=== PATIENT | male | born 1985 | race Caucasian/White ===

== ENCOUNTER 2017-12-14 12:10 | Emergency (ER) | payer OTHER ==
[2017-12-14 14:39] VITALS: BP 110/58
[2017-12-14] MEDS ORDERED: Ibuprofen TAB* 600 MG PO ONE (15:00)
--- NOTE | 2017-12-14 16:28 | RAD ---
INDICATION: Pain at the right base of the thumb after a fall COMPARISON: None. TECHNIQUE: 4 views of the right hand and 4 views of the right wrist were obtained. FINDINGS: On the scaphoid view of the right wrist there is a lucent line along the proximal radial corner of the right trapezium that appears to extend to the cortices along the radial and proximal margins of the bone. Otherwise the remaining visualized bones are adequately corticated and appropriately aligned. IMPRESSION: Questionable nondisplaced fracture involving the radial proximal corner of the right trapezium. If the patient's symptoms persist, follow-up imaging is recommended.
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
--- NOTE | 2017-12-14 19:50 | RAD ---
INDICATION: Pain at the right base of the thumb after a fall COMPARISON: None. TECHNIQUE: 4 views of the right hand and 4 views of the right wrist were obtained. FINDINGS: On the scaphoid view of the right wrist there is a lucent line along the proximal radial corner of the right trapezium that appears to extend to the cortices along the radial and proximal margins of the bone. Otherwise the remaining visualized bones are adequately corticated and appropriately aligned. Joint spaces appear maintained. IMPRESSION: Questionable nondisplaced fracture involving the radial proximal corner of the right trapezium. If the patient's symptoms persist, follow-up imaging is recommended.
== END 2017-12-14 16:59 | disposition home or self-care (01) ==
LOC: UCEAST 12:10
DX: S69.91XA Unspecified injury of right wrist, hand and finger(s), initial encounter (principal); W22.8XXA Striking against or struck by other objects, initial encounter; Y93.9 Activity, unspecified; Y92.9 Unspecified place or not applicable; Z88.0 Allergy status to penicillin; F12.90 Cannabis use, unspecified, uncomplicated
CPT/HCPCS: 99211; A9270-GY; G0463

== ENCOUNTER 2019-10-26 09:22 | Inpatient (IN) | payer SELFPAY ==
--- OUTSIDE RECORDS SUMMARY | 2019-10-26 10:02 | XMS REPORT ---
:1985 Author Organization [facility] Care Team Providers Name Role Phone Mary Greco Primary Care Physician Unavailable Allergies, Adverse Reactions, Alerts Allergy Code CodeSystem Reaction Severity Criticality Status Start Substance Date Moderate Medications Medication Medication Medication Start Stop Route Dose Status Fill Code CodeSystem Date Date Instructions estradiol 931954 RxNorm oral 2 mg active for 30 7-09 tablet day(s) escitalopram 567504 RxNorm 2019- oral 10 mg completed for 30 oxalate 6-14 11-05 tablet day(s) escitalopram 711716 RxNorm 2018-11 oral 5 mg 1 active Take 1 tablet oxalate 1-05 tablet once a day once a for 30 day(s) day bupropion HCl 469689 RxNorm 2018-11 oral 300 mg active for 30 1-05 tablet day(s) extended release 24 hr spironolactone 166720 RxNorm oral 50 mg active for 30 7-09 tablet day(s) Problems Problem Name Code CodeSystem Alternate Alternate Start End Status Narrative Code CodeSystem Date Date Bipolar 09509982 SNOMED-CT 2018-11 Active affective 1-05 disorder, unspecified Depressive 74440130 SNOMED-CT Active episode, 3-22 unspecified Relevant diagnostic tests/laboratory data Narrative No Information Procedures Procedure Code CodeSystem Target Date of Status Service Device Device Device Name Site Procedure Delivery Code Name UID Location Psychotherap [id number] SNOMED-CT () 2019-06-14 complete Mental y, 45 04 d Health- minutes with [address], [id number] [id number] Psychotherap [id number] SNOMED-CT () 2019-06-28 complete Mental y, 45 04 d Health- minutes with [facility] patient [address], [id number] [id number] Psychotherap [id number] SNOMED-CT () 2019-07-26 complete Mental y, 45 04 d Health- minutes with [address], [id number] [id number] Psychotherap 325309 SNOMED-CT () 2019-08-02 complete Mental y, 45 04 d Health- minutes with [address], [id number] [id number] Psychotherap 154622 SNOMED-CT () 2019-08-09 complete Mental y, 45 04 d Health- minutes with [address], [id number] Psychotherap [id number] SNOMED-CT () 2019-08-16 complete Mental y, 45 04 d Health- minutes with [address], [id number] [id number] Psychotherap 575894 SNOMED-CT () 2019-04-02 complete Mental y, 45 04 d Health- minutes with [address], [id number] [id number] Psychotherap 510026 SNOMED-CT () 2019-09-23 complete Mental y, 45 04 d Health- minutes with [address], [id number] Psychotherap 181849 SNOMED-CT () 2019-02-11 complete Mental y, 45 04 d Health- minutes with [address], [id number] [id number] Psychotherap 220575 SNOMED-CT () 2019-05-21 complete Mental y, 45 04 d Health- minutes with [address], [id number] [id number] Psychotherap 286617 SNOMED-CT () 2019-05-28 complete Mental y, 45 04 d Health- minutes with [address], [id number] [id number] Psychotherap 311390 SNOMED-CT () 2019-05-31 complete Mental y, 45 04 d Health- minutes with [address], [id number] [phone] Psychotherap 176049 SNOMED-CT () 2019-03-03 complete Mental y, 45 04 d Health- minutes with [address], [id number] [id number] Psychotherap 009593 SNOMED-CT () 2019-03-11 complete Mental y, 45 04 d Health- minutes with [address], [id number] [phone] Psychotherap 700096 SNOMED-CT () 2019-03-17 complete Mental y, 45 04 d Health- minutes with [address], [id number] Psychotherap 502736 SNOMED-CT () 2019-09-01 complete Mental y, 45 04 d Health- minutes with [address], [id number] [id number] Psychotherap 018739 SNOMED-CT () 2019-09-06 complete Mental y, 45 04 d Health- minutes with [address], [id number] [phone] Psychotherap 122093 SNOMED-CT () 2019-04-15 complete Mental y, 45 04 d Health- minutes with [address], [id number] [phone] Psychotherap 179290 SNOMED-CT () 2019-04-21 complete Mental y, 45 04 d Health- minutes with [address], [id number] [id number] Psychotherap 854577 SNOMED-CT () 2019-04-29 complete Mental y, 45 04 d Health- minutes with [address], [id number] [phone] Psychotherap 924738 SNOMED-CT () 2019-05-06 complete Mental y, 45 04 d Health- minutes with [address], [id number] [phone] Psychiatric 065276 SNOMED-CT () 2019-09-14 complete Mental diagnostic 85 d Health- evaluation [address], [id number] SNOMED-CT () 2019-09-14 complete Mental d [address], [id number] SNOMED-CT () 2019-03-26 complete Mental d [address], [id number] SNOMED-CT () 2019-02-19 complete Mental d [address], [id number] [id number] SNOMED-CT () 2019-02-26 complete Mental d [address], [id number] [id number] SNOMED-CT () 2019-04-09 [facility] Mental d [address], [id number] [id number] SNOMED-CT () 2019-06-08 [facility] Mental d [address], [id number] [phone] Encounters/Encounter Diagnoses Encounter Name Encounter Diagnosis Diagnosis Diagnosis Date of Service Code Code Name CodeSystem Diagnosis Delivery Location [facility] - [id number] Bipolar SNOMED-CT 2019-09-30 Behavioral Individual 30 affective Health min disorder, Clinic , , unspecified , Vital Signs No Information Social History Element Description Description Start End Code CodeSystem AdditionalInfo Date Date SexAssignedAtBirth Male 1984- M AdministrativeGender Hospital Discharge Instructions Reason For Referral Medical Equipment FDA Assessments
--- OUTSIDE RECORDS SUMMARY | 2019-10-26 10:02 | XMS REPORT ---
:1985 Author Organization [facility] Care Team Providers Name Role Phone Mary Greco Primary Care Physician Unavailable Allergies, Adverse Reactions, Alerts Allergy Code CodeSystem Reaction Severity Criticality Status Start Substance Date Moderate Medications Medication Medication Medication Start Stop Route Dose Status Fill Code CodeSystem Date Date Instructions escitalopram 150857 RxNorm 2018-11 oral 5 mg 1 active Take 1 tablet oxalate 1-05 tablet once a day once a for 30 day(s) day escitalopram 247876 RxNorm 2019- oral 10 mg completed for 30 oxalate 6-14 11-05 tablet day(s) estradiol 076231 RxNorm oral 2 mg active for 30 7-09 tablet day(s) bupropion HCl 470662 RxNorm 2018-11 oral 300 mg active for 30 1-05 tablet day(s) extended release 24 hr spironolactone 552515 RxNorm oral 50 mg active for 30 7-09 tablet day(s) Problems Problem Name Code CodeSystem Alternate Alternate Start End Status Narrative Code CodeSystem Date Date Depressive 33131821 SNOMED-CT Active episode, 3-22 unspecified Bipolar 71946642 SNOMED-CT 2018-11 Active affective 1-05 disorder, unspecified Relevant diagnostic tests/laboratory data Narrative No Information Procedures Procedure Code CodeSystem Target Date of Status Service Device Device Device Name Site Procedure Delivery Code Name UID Location Psychotherap [id number] SNOMED-CT () 2019-06-14 complete Mental y, 45 04 d Health- minutes with [address], [id number] [id number] Psychotherap [id number] SNOMED-CT () 2019-06-28 complete Mental y, 45 04 d Health- minutes with [facility] patient [address], [id number] [phone] Psychotherap 515359 SNOMED-CT () 2019-07-26 complete Mental y, 45 04 d Health- minutes with [address], [id number] [id number] Psychotherap 975139 SNOMED-CT () 2019-08-02 complete Mental y, 45 04 d Health- minutes with [address], [id number] [id number] Psychotherap 490294 SNOMED-CT () 2019-08-09 complete Mental y, 45 04 d Health- minutes with [address], [id number] [phone] Psychotherap 689871 SNOMED-CT () 2019-08-16 complete Mental y, 45 04 d Health- minutes with [address], [id number] [id number] Psychotherap 220694 SNOMED-CT () 2019-04-02 complete Mental y, 45 04 d Health- minutes with [address], [id number] [phone] Psychotherap 288058 SNOMED-CT () 2019-02-11 complete Mental y, 45 04 d Health- minutes with [address], [id number] [phone] Psychotherap 576776 SNOMED-CT () 2019-05-21 complete Mental y, 45 04 d Health- minutes with [address], [id number] [phone] Psychotherap 705966 SNOMED-CT () 2019-05-28 complete Mental y, 45 04 d Health- minutes with [address], [id number] [phone] Psychotherap 218707 SNOMED-CT () 2019-05-31 complete Mental y, 45 04 d Health- minutes with [address], [id number] [phone] Psychotherap 856005 SNOMED-CT () 2019-03-03 complete Mental y, 45 04 d Health- minutes with [address], [id number] [id number] Psychotherap 009084 SNOMED-CT () 2019-03-11 complete Mental y, 45 04 d Health- minutes with [address], [id number] [phone] Psychotherap 351179 SNOMED-CT () 2019-03-17 complete Mental y, 45 04 d Health- minutes with [address], [id number] [phone] Psychotherap 235858 SNOMED-CT () 2019-09-01 complete Mental y, 45 04 d Health- minutes with [address], [id number] [phone] Psychotherap 497991 SNOMED-CT () 2019-09-06 complete Mental y, 45 04 d Health- minutes with [address], [id number] [id number] Psychotherap 587754 SNOMED-CT () 2019-04-15 complete Mental y, 45 04 d Health- minutes with [address], [id number] [phone] Psychotherap 112819 SNOMED-CT () 2019-04-21 complete Mental y, 45 04 d Health- minutes with [address], [id number] [phone] Psychotherap 944553 SNOMED-CT () 2019-04-29 complete Mental y, 45 04 d Health- minutes with [address], [id number] [phone] Psychotherap 924038 SNOMED-CT () 2019-05-06 complete Mental y, 45 04 d Health- minutes with [address], [id number] [phone] Psychiatric 012770 SNOMED-CT () 2019-09-14 complete Mental diagnostic 85 d Health- evaluation [address], [id number] SNOMED-CT () 2019-09-14 complete Mental d Health- [address], [id number] [phone] SNOMED-CT () 2019-03-26 complete Mental d [address], [id number] [phone] SNOMED-CT () 2019-02-19 complete Mental d [address], [id number] [phone] SNOMED-CT () 2019-02-26 complete Mental d [address], [id number] [phone] SNOMED-CT () 2019-04-09 [facility] Mental d [address], [id number] [phone] SNOMED-CT () 2019-06-08 [facility] Mental d [address], [id number] [phone] Encounters/Encounter Diagnoses Encounter Name Encounter Diagnosis Diagnosis Diagnosis Date of Service Code Code Name CodeSystem Diagnosis Delivery Location [facility] [id number] Bipolar SNOMED-CT 2019-09-23 Behavioral Individual 30 affective Health min disorder, Clinic , , unspecified , Vital Signs No Information Social History Element Description Description Start End Code CodeSystem AdditionalInfo Date Date SexAssignedAtBirth Male 1984- M AdministrativeGender Hospital Discharge Instructions Reason For Referral Medical Equipment FDA Assessments
[2019-10-26 10:50] LABS: ABS Basophils 0.1 10^3/ul (0-0.2); ABS Eosinophils 0.2 10^3/ul (0-0.6); ABS Lymphocytes 1.5 10^3/ul (1.0-4.8); ABS Monocytes 0.4 10^3/ul (0-0.8); ABS Neutrophils 2.7 10^3/ul (1.5-7.7); Eosinophil % 3.5 %; Hematocrit 41 % (42-52); Hemoglobin 14.6 g/dL (14.0-18.0); Lymphocyte % 30.8 %; Mean Corpuscular HGB Conc 36 g/dL (31-36); Mean Corpuscular Hemoglobin 32 pg (27-31); Mean Corpuscular Volume 90 fL (80-94); Nucleated Red Blood Cells % 0.1; Platelet Count 236 10^3/uL (150-450); Red Blood Count 4.59 10^6 /uL (4.18-5.48); Red Cell Distribution Width 13 % (10-15); White Blood Count 4.8 10^3/uL (3.5-10.8)
[2019-10-26 10:58] LABS: ALT 18 U/L (7-52); AST 21 U/L (13-39); Albumin 4.3 g/dL (3.2-5.2); Albumin/Globulin Ratio 1.7 (1-3); Alkaline Phosphatase 36 U/L (34-104); Anion Gap 6 mmol/L (2-11); BUN/Creatinine Ratio 11.1 (8-20); Blood Urea Nitrogen 11 mg/dL (6-24); CO2 Carbon Dioxide 27 mmol/L (22-32); Calcium 10.1 mg/dL (8.6-10.3); Chloride 105 mmol/L (101-111); EGFR Non-African American 87.6 (>60); Globulin 2.5 g/dL (2-4); Glucose 99 mg/dL (70-100); Potassium 4.3 mmol/L (3.5-5.0); Sodium 138 mmol/L (135-145); Total Protein 6.8 g/dL (6.4-8.9)
[2019-10-26 11:08] LABS: Acetaminophen < 15 mcg/mL; Alcohol < 10 mg/dL (<10); Salicylate < 2.50 mg/dL (<30)
--- NOTE | 2019-10-26 11:09 | ED ---
Psychiatric Complaint - HPI Summary HPI Summary: Pt is a 33 y/o M presenting to the ED with a chief psychiatric complaint. Pt states he was placed on Lexapro as well as Wellbutrin last year after an episode of intrusive/harmful thoughts. He has been gaining weight while on Lexapro, and also felt that the medication was not doing much for him. Since he was already on Wellbutrin, him and his psychiatrist, Dr. Mckay, decided to taper off of the Lexapro and increase the Wellbutrin. Wellbutrin increased about 6wks ago, and his last dose of Lexapro was 10/19/19. On 10/20/19, he began experiencing increasing panic and feels he has been spiraling since then. He describes intermittent brain zaps characterized by dizziness when he looks to the side, as well as some confusion and episodes of intrusive thoughts and images. Pt states has no specific plan for self injury but states thoughts are becoming pervasive and is concerend. Pt has not injured self He has some coping mechanisms in place as well as a good group of people that he frequently talks to about his issues, and has been eating well and sleeping alright. Denies hallucinations or any attempts to hurt himself. Infrequently smokes marijuana, the last time about 1.5months ago, and infrequently drinks alcohol. Pt takes estradiol and spironolactone as well. - History Of Current Complaint Chief Complaint: EDSuicidal Time Seen by Provider: 10/26/19 09:47 Accompanied By: friend Hx Obtained From: Patient Onset/Duration: Gradual Onset, Lasting Days, Still Present Timing: Days Severity Initially: Mild Severity Currently: Moderate Character: Depressed, Anxious Aggravating Factor(s): Other - medication change Alleviating Factor(s): Nothing Associated Signs And Symptoms: Positive: Sleep Disturbance Related History: Positive For: Prior Psychiatric Issues Has Suicidal: Reports: Thoughts. Denies: With A Plan - Allergies/Home Medications Allergies/Adverse Reactions: Allergies Allergy/AdvReac Type Severity Reaction Status Date / Time Penicillins Allergy Intermediate Rash Verified 10/26/19 09:45 Home Medications: Home Medications Estradiol (NF) 4 mg PO TID 10/26/19 [History Confirmed 10/26/19] Spironolactone (NF) [Spironolactone 50 MG (NF)] 50 mg PO TID 10/26/19 [History Confirmed 10/26/19] PMH/Surg Hx/FS Hx/Imm Hx Previously Healthy: Yes Endocrine/Hematology History: Denies: Hx Diabetes, Hx Thyroid Disease Cardiovascular History: Denies: Hx Hypertension Respiratory History: Denies: Hx Asthma, Hx Chronic Obstructive Pulmonary Disease (COPD) GI History: Denies: Hx Ulcer History: Denies: Hx Renal Disease Psychiatric History: Reports: Hx Anxiety, Hx Depression, Hx Panic Disorder - Surgical History Surgery Procedure, Year, and Place: denies - Immunization History Date of Tetanus Vaccine: UNK Date of Influenza Vaccine: UNK Infectious Disease History: No Infectious Disease History: Denies: Hx Hepatitis, Hx Human Immunodeficiency Virus (HIV), Traveled Outside the [place] in Last 30 Days - Family History Known Family History: Positive: Other Family History: FHx of ulcerative colitis - father. No FHx of crohn's disease - Social History Occupation: Employed Full-time Lives: Dormitory/Roommates Alcohol Use: Occasionally Hx Substance Use: Yes Substance Use Type: Reports: Marijuana Hx Tobacco Use: No Smoking Status (MU): Never Smoked Tobacco Review of Systems Positive: Other - medication changes Neurological: Other - dizziness Positive: Anxious, Depressed, Other - positive suicidal thoughts, no intent or plan All Other Systems Reviewed And Are Negative: Yes Physical Exam - Summary Physical Exam Summary: Vital Signs Reviewed: Yes A+Ox3, no distress, appropriate good eye contact Eyes: Conjunctiva Clear ENT: Hearing grossly normal TM x 2 clear Neck: Positive: Supple Respiratory: Positive: No respiratory distress, No accessory muscle use + CTA throughout no w/r Cardiovascular: RRR nl s1, s2 no m/r CBT <2 sec abd soft + BS nt/nd no guarding, no distension Musculoskeletal Exam: ROY x 4 without difficulty Strength Intact, ROM Intact Neurological: Positive: Alert, + sensation throughout Psychological: Positive: normal interaction good eye contact Skin: Positive: no rash, no ecchymosis Triage Information Reviewed: Yes Vital Signs On Initial Exam: Initial Vitals Temp Pulse Resp BP Pulse Ox 99.4 F 82 16 114/83 100 10/26/19 09:41 10/26/19 09:41 10/26/19 09:41 10/26/19 09:41 10/26/19 09:41 Vital Signs Reviewed: Yes Procedures - Sedation Patient Received Moderate/Deep Sedation with Procedure: No Diagnostics - Vital Signs Vital Signs Temp Pulse Resp BP Pulse Ox 10/26/19 09:41 99.4 F 82 16 114/83 100 - Laboratory Lab Results: Lab Results 10/26/19 10/26/19 Range/Units 10:20 10:20 WBC 4.8 (3.5-10.8) 10^3/uL RBC 4.59 (4.18-5.48) 10^6 /uL Hgb 14.6 (14.0-18.0) g/dL Hct 41 L (42-52) % MCV 90 (80-94) fL MCH 32 H (27-31) pg MCHC 36 (31-36) g/dL RDW 13 (10-15) % Plt Count 236 (150-450) 10^3/uL MPV 7.0 L (7.4-10.4) fL Neut % (Auto) 56.2 % Lymph % (Auto) 30.8 % Waller % (Auto) 8.3 % Eos % (Auto) 3.5 % Baso % (Auto) 1.2 % Absolute Neuts (auto) 2.7 (1.5-7.7) 10^3/ul Absolute Lymphs (auto) 1.5 (1.0-4.8) 10^3/ul Absolute Monos (auto) 0.4 (0-0.8) 10^3/ul Absolute Eos (auto) 0.2 (0-0.6) 10^3/ul Absolute Basos (auto) 0.1 (0-0.2) 10^3/ul Absolute Nucleated RBC 0.0 10^3/ul Nucleated RBC % 0.1 Sodium 138 (135-145) mmol/L Potassium 4.3 (3.5-5.0) mmol/L Chloride 105 (101-111) mmol/L Carbon Dioxide 27 (22-32) mmol/L Anion Gap 6 (2-11) mmol/L BUN 11 (6-24) mg/dL Creatinine 0.99 (0.67-1.17) mg/dL Est GFR ( Amer) 106.0 (>60) Est GFR (Non-Af Amer) 87.6 (>60) BUN/Creatinine Ratio 11.1 (8-20) Glucose 99 (70-100) mg/dL Calcium 10.1 (8.6-10.3) mg/dL Total Bilirubin 0.50 (0.2-1.0) mg/dL AST 21 (13-39) U/L ALT 18 (7-52) U/L Alkaline Phosphatase 36 (34-104) U/L Total Protein 6.8 (6.4-8.9) g/dL Albumin 4.3 (3.2-5.2) g/dL Globulin 2.5 (2-4) g/dL Albumin/Globulin Ratio 1.7 (1-3) TSH Pending Salicylates Pending Acetaminophen Pending Serum Alcohol Pending Result Diagrams: 10/26/19 10:20 10/26/19 10:20 Lab Statement: Any lab studies that have been ordered have been reviewed, and results considered in the medical decision making process. Re-Evaluation - Re-Evaluation 1st re-eval Re-Evaluation Time: 10:44 Change: Unchanged Comment: Mental health staff notified. Pt cleared for eval. 2nd re-eval Re-Evaluation Time: 14:38 Change: Unchanged Comment: As per Dr. Mabry, pt will be admitted voluntarily to [facility] with dx of mood disorder. Course/Dx - Course Course Of Treatment: Patient presents to urgent care with a friend. Patient states over the last week since stopping Lexapro he's had increasing pervasive thoughts of self injury. Patient states he is not taken any in action to injure himself but he keeps thinking about it. Patient states he notices he is having a hard time focusing and has had some panic when his work. Patient's number, the hospital for this before. Patient states he does have a counselor the patient was [facility]. Patient denies hallucinations. On exam vital signs are stable. Nothing concerning physical exam. We'll check labs and his mental health to evaluate him. Patient update on the process and states understanding. - Differential Dx/Clinical Impression Provider Diagnosis: Mood disorder Discharge ED - Sign-Out/Discharge Documenting (check all that apply): Patient Departure - Discharge Plan Condition: Stable Disposition: PSYCHIATRIC FACILITY-[facility] Referrals: Zena Chen PA [Primary Care Provider] - - Billing Disposition and Condition Condition: STABLE Disposition: Psychiatric Facility [facility] - Attestation Statements Document Initiated by Scribe: Yes Documenting Scribe: Lisa Byrne Provider For Whom Scribe is Documenting (Include Credential): Cecelia Bonner MD. Scribe Attestation: I, Lisa Byrne, scribed for Cecelia Bonner MD. on 10/26/19 at 1534. Scribe Documentation Reviewed: Yes Provider Attestation: The documentation as recorded by the scribe, Lisa Byrne accurately reflects the service I personally performed and the decisions made by me, Cecelia Bonner MD. Status of Scribe Document: Viewed
[2019-10-26 11:10] LABS: Urine Appearance Clear; Urine Bilirubin Negative (Negative); Urine Blood Negative (Negative); Urine Color Straw; Urine Glucose Negative (Negative); Urine Ketones Negative (Negative); Urine Nitrite Negative (Negative); Urine Protein Negative (Negative); Urine Specific Gravity 1.003 (1.010-1.030); Urine Urobilinogen Negative (Negative)
[2019-10-26 11:22] LABS: TSH (Thyroid Stimulating Horm) 1.78 mcIU/mL (0.34-5.60)
[2019-10-26 11:32] LABS: Urine Benzodiazepine Screen None Detected (None Detect); Urine Opiates Screen None Detected (None Detect)
[2019-10-26] MEDS ORDERED: Al Hydrox/Mg Hydrox/Simet LIQ* 30 ML UDC PO PRN (15:26)
[2019-10-26] MEDS ORDERED: hydrOXYzine HCL TAB* 50 MG PO PRN (15:29)
[2019-10-26] MEDS: Acetaminophen TAB* 325 MG PO PRN (21:18)
[2019-10-26] MEDS: Spironolactone TAB* 25 MG PO SCH (21:18)
[2019-10-26] MEDS: PTO: Estradiol TAB(NF) 2 MG TAB PO SCH (22:30)
[2019-10-27 06:21] LABS: HDL Cholesterol 50.8 mg/dL
[2019-10-27] MEDS ORDERED: Influenza VAC *QUAD* 2019-20* 0.5 ML SYRINGE IM ONE (09:00)
[2019-10-27] MEDS: PTO: Estradiol TAB(NF) 2 MG TAB PO SCH ×3 (09:36→21:57)
[2019-10-27] MEDS: BuPROPion XL* 300 MG TAB.XL PO SCH (09:36)
[2019-10-27] MEDS: Spironolactone TAB* 25 MG PO SCH ×3 (09:39→19:18)
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
[2019-10-27] MEDS: Acetaminophen TAB* 325 MG PO PRN (16:29)
[2019-10-27] MEDS: traZODone TAB* 50 MG TAB PO SCH (21:57)
[2019-10-28] MEDS: Spironolactone TAB* 25 MG PO SCH ×4 (08:59→19:21)
[2019-10-28] MEDS: BuPROPion XL* 300 MG TAB.XL PO SCH (08:59)
[2019-10-28] MEDS: PTO: Estradiol TAB(NF) 2 MG TAB PO SCH ×4 (09:00→19:21)
[2019-10-28] MEDS: cloNIDine TAB* 0.1 MG PO PRN ×2 (09:19→15:20)
--- NOTE | 2019-10-28 15:13 | PN ---
Subjective - Subjective Date of Service: 10/28/19 Service Type: 34100 Hosp care 25 min moderate complexity Subjective: Patient has been speaking with staff and being open about dysphoria and suicidal ideation. She endorses that she has waves of overwhelming symptoms-- sadness, hopelessness and worthlessness. Patient reports clonidine was helpful when feeling panicky this morning. She states being hospitalized has helped her objectively look at her relationships and is motivated to make healthy choices. Objective - General Observations Appearance: Neat Stature: WNL Posture: WNL Eye Contact: Average Behavior/Activity: WNL - Interaction Observations Attitude Towards Examiner: Cooperative Stated Mood: Dysphoric Affect: Blunted Speech Pattern/Tone: Clear, Appropriate, Quiet Volume Thought Process: Coherent Perception: WNL Thought Content: Depressive Thought Process: Lethality: Suicidal Planning Hallucination Type: Denies Delusion Type: Denies - Cognitive Function Orientation: A&O x 4 Level of Consciousness: Alert Cognition: WNL Estimated Intelligence: Normal Insight: WNL Judgment Within Normal Limits: Yes Ability to Make Reasonable Decisions: Mildly Impaired - Medication Compliance Cooperative with Inpatient Medication Regimen: Yes - Group Participation Participates in Group Activities: Yes Assessment - Assessment Merits Inpatient Hospitalization: For Immediate Safety, For Stabilization Inpatient DSM-V Dx: F33.9 Clinical Impression: First psychiatric hospitalization for 33yo white, transgender male to female, domiciled, , employed person who presented to the ED due to intrusive suicidal thoughts. Patient merits hospitalization for immediate safety and stabilization. Plan - Plan Treatment Plan: Name: JULISSA DUNLAP Birthdate: 1985 [id number] continue acute intensive psychiatric treatment. may decrease to q30min observation, allow computer use and staff pass per RN discretion. start escitalopram 10mg daily, continue other medications as ordered. discharge tentative 10/29/19. Continued Medication Management: Start Medication Medications: Current Medications Acetaminophen (Tylenol Tab*) 650 mg PO Q4H PRN PRN Reason: for pain; or Temp >101 F Last Admin: 10/27/19 16:29 Dose: 650 mg Al Hydrox/Mg Hydrox/Simethicone (Maalox Plus*) 30 ml PO Q4H PRN PRN Reason: INDIGESTION Bupropion HCl (Bupropion Xl*) 300 mg PO DAILY J[facility] Last Admin: 10/28/19 08:59 Dose: 300 mg Clonidine HCl (Catapres Tab*) 0.1 mg PO TID PRN PRN Reason: ANXIETY Last Admin: 10/28/19 09:19 Dose: 0.1 mg Escitalopram Oxalate (Lexapro *) 10 mg PO DAILY [facility] Estradiol (Estradiol Tab(Nf)) 2 mg PO TID [facility] Last Admin: 10/28/19 14:51 Dose: Not Given Hydroxyzine HCl (Atarax Tab*) 50 mg PO Q6H PRN PRN Reason: anxiety Last Admin: 10/27/19 16:33 Dose: 50 mg Spironolactone (Aldactone Tab*) 50 mg PO 0900,1300,1800 [facility] Last Admin: 10/28/19 14:51 Dose: Not Given Trazodone HCl (Desyrel Tab*) 50 mg PO BEDTIME [facility] Last Admin: 10/27/19 21:57 Dose: 50 mg - Discharge Plan Discharge Plan: Inpatient Hospitalization
[2019-10-28] MEDS: Escitalopram * 10 MG TAB PO SCH (15:18)
[2019-10-28] MEDS: traZODone TAB* 50 MG TAB PO SCH (21:46)
[2019-10-29] MEDS: PTO: Estradiol TAB(NF) 2 MG TAB PO SCH (09:50)
[2019-10-29] MEDS: Escitalopram * 10 MG TAB PO SCH (09:50)
[2019-10-29] MEDS: BuPROPion XL* 300 MG TAB.XL PO SCH (09:50)
[2019-10-29] MEDS: Spironolactone TAB* 25 MG PO SCH ×2 (09:50→13:02)
[2019-10-29 10:05] VITALS: BP 119/65
--- NOTE | 2019-10-29 11:32 | PN ---
BSU: Group Therapy Note - Service Type Service Type: [id number] Group Psychotherapy - Cognitive Behavioral Group Therapy ( CBT):Patient was attentive and participatory in CBT programming this morning, and remained in good behavioral control. Patient expressed positive insights regarding relevant treatment interventions and goals.
--- NOTE | 2019-10-29 12:17 | DCNOTE ---
Subjective - Subjective Service Types: 95901 Hosp DC Day Mgmt simple under 30 min Discharge Date: 10/29/19 Subjective: Patient reports improved mood and outlook on life. She states she benefitted from hospitalization and is eager to return home to her family. She states readiness for discharge. Objective - General Observations Appearance: Neat Stature: WNL Posture: WNL Eye Contact: Average Behavior/Activity: WNL - Interaction Observations Attitude Towards Examiner: Cooperative Stated Mood: Euthymic Affect: Bright Speech Pattern/Tone: Clear, Appropriate, Normal Volume Thought Process: Coherent, Goal Directed Perception: WNL Thought Content: WNL Hallucination Type: Denies Delusion Type: Denies - Cognitive Function Orientation: A&O x 4 Level of Consciousness: Alert Cognition: WNL Estimated Intelligence: Normal Insight: WNL Judgment Within Normal Limits: Yes - Medication Compliance Cooperative with Inpatient Medication Regimen: Yes - Group Participation Participates in Group Activities: Yes DC Assessment - Assessment Clinical Impression: First psychiatric hospitalization for 33yo white, transgender male to female, domiciled, , employed person who presented to the ED due to intrusive suicidal thoughts. patient has stabilized in this structured setting and denies SI or passive wish. Merits Inpatient Hospitalization: No Clear for Discharge: Adequate Clinical Respons, Acceptable Safety Profile Inpatient DSM-V Dx: F33.9 Discharge Planning - Discharge Planning Discharge Plan: Outpatient Follow Up Outpatient [facility]: [facility] Recommendations for Continuing Care: Medication Management, Psychotherapy, Primary Care Followup Medications: Current Medications Bupropion HCl (Bupropion Xl*) 300 mg PO DAILY [facility] Last Admin: 10/29/19 09:50 Dose: 300 mg Clonidine HCl (Catapres Tab*) 0.1 mg PO TID PRN PRN Reason: ANXIETY Last Admin: 10/28/19 15:20 Dose: 0.1 mg Escitalopram Oxalate (Lexapro *) 10 mg PO DAILY [facility] Last Admin: 10/29/19 09:50 Dose: 10 mg Estradiol (Estradiol Tab(Nf)) 2 mg PO TID [facility] Last Admin: 10/29/19 09:50 Dose: 2 mg Hydroxyzine HCl (Atarax Tab*) 50 mg PO Q6H PRN PRN Reason: anxiety Last Admin: 10/27/19 16:33 Dose: 50 mg Spironolactone (Aldactone Tab*) 50 mg PO 0900,1300,1800 [facility] Last Admin: 10/29/19 09:50 Dose: 50 mg Trazodone HCl (Desyrel Tab*) 50 mg PO BEDTIME [facility] Last Admin: 10/28/19 21:46 Dose: 50 mg Discharge Planning: Prescriptions provided for discharge [x] Yes [] No Follow up care details as per social work arrangements: [facility]- primary care Patient response to discharge plan: [x] eager for discharge [x] agreeable with discharge plan [] ambivalent about discharge [] disagrees with discharge today
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
== END 2019-10-29 13:15 | disposition home or self-care (01) | DRG 885 ==
LOC: ED 09:22 → BSU 15:26
PROVIDERS: ADMIT Psychiatry & Neurology Psychiatry; ATTEND Psychiatry & Neurology Psychiatry
PROC: GZHZZZZ Group Psychotherapy (ICD-10-PCS; principal; 2019-10-29)
DX: F33.2 Major depressive disorder, recurrent severe without psychotic features (principal); R45.851 Suicidal ideations; Z62.810 Personal history of physical and sexual abuse in childhood; F64.9 Gender identity disorder, unspecified; F41.0 Panic disorder [episodic paroxysmal anxiety]; Z79.899 Other long term (current) drug therapy; Z88.0 Allergy status to penicillin; Z23 Encounter for immunization
CPT/HCPCS: 36415; 80053; 80061; 80307; 80320; 80329; 81003; 83036; 84443; 85025; 90686; 90853; 99222; 99232; 99238; 99284; A9270-GY; G0480